=== PATIENT | male | born 1985 | race Caucasian/White ===

== ENCOUNTER 2019-10-08 15:24 | Observation (INO) | payer OTHER ==
[~2019-10-08] VITALS: Ht 182.9 cm; Wt 93.9 kg
--- NOTE | ~2019-10-08 | CN ---
PATIENT NAME:SAFIA WALTERS MEDICAL RECORD: [id number] : 83 LOCATION:D. D.2129 ADMIT DATE: 10/08/19 ACCOUNT: [id number] CONSULTING PHYSICIAN: SUSY MINOR MD REFERRING PHYSICIAN: PRECIOUS SANTOYO MD DATE OF CONSULTATION: 10/08/2019 ADMITTING DIAGNOSES: 1. Acute myocardial infarction. 2. Flu. 3. Shortness of breath. 4. Chest pain. HISTORY OF PRESENT ILLNESS: Mr. Walters presented to his primary care physician earlier in the week with chest pain and flu-like symptoms, was positive for the flu. His EKG at that time was with no significant ST abnormalities. His flu-like symptoms have not worsened; however, his chest pain has worsened over the past few days, he presents to [facility]. Initial EKG was compatible with acute inferior myocardial infarction. Repeat EKG is compatible with an acute inferolateral myocardial infarction. He continues to have chest pain. His troponin is elevated. PHYSICAL EXAMINATION: CONSTITUTIONAL/GENERAL APPEARANCE: Well nourished, well developed, appears stated age. EYES: Lids and conjunctivae noninjected. No discharge. No pallor. ENT: Lips within normal limit. No cyanosis. No pallor. NECK: Carotid arteries, bilateral normal upstroke. No bruits. No thrills. No jugular venous pressure or distention. CERVICAL LYMPH NODES: Nontender. Nonenlarged. THYROID: Not enlarged. No nodules. CARDIOVASCULAR: Precordial exam, nondisplaced. No heaves or pericardial thrills. Rate and rhythm, regular. Heart sounds, normal S1, normal S2. No S3, no gallop, no rub. Systolic murmur, not heard. Diastolic murmur, not heard. RESPIRATORY: Respiratory effort, unlabored. Normal curvature. No thoracic deformity. No chest wall tenderness. Percussion, resonant. Auscultation, clear. No wheezes, no rales, no rhonchi. ABDOMEN: Soft, nondistended, nontender. No abdominal pain, no vomiting and normal appetite. MUSCULOSKELETAL: No joint tenderness, normal gait, normal tone. SKIN: Warm and dry. OVERALL IMPRESSION: Chest pain compatible with an acute myocardial infarction. EKG compatible with an acute myocardial infarction. We will proceed with coronary angiography. Further care depends upon the findings of the angiography. TRANSINT:[id number] Voice Confirmation ID: [id number] DOCUMENT ID: [id number] CONSULT REPORT [id number] SAFIA WALTERS JEFFREY MD CC: [id number] DICTATION DATE: 10/08/19 155 GEOMORPHOLOGY TEACHER: 10/08/19 2345 ADM IN [facility] [address] [place] [address]
--- NOTE | ~2019-10-08 | OP ---
PATIENT NAME: SAFIA JEAN MEDICAL RECORD: [id number] :83 LOCATION:D.M2 D.2129 ADMISSION DATE:10/08/19 SURGEON: SUSY MINOR MD DATE OF OPERATION: 10/08/2019 PROCEDURES: 1. Left heart catheterization. 2. Selective coronary angiography. 3. Left ventriculogram. INDICATION: Abnormal ECG. Positive troponin, pericarditis. PROCEDURE IN DETAIL: After informed consent was obtained and after a detailed description of the risks, benefits as well as alternative therapies, the patient elected to proceed with angiogram and heart catheterization. The right femoral area was prepped and draped in normal sterile fashion. Right femoral artery was cannulated via modified Seldinger technique with placement of 6-Mongolian sheath. All catheters exchanged through this sheath. FINDINGS: Left ventriculogram was performed in standard 30-degree LYNN view, reveals good cardiac wall motion, ejection fraction estimated 60%. SELECTIVE CORONARY ANGIOGRAPHY: Left main, left anterior descending, left circumflex, right coronary are all smooth-walled vessels with no angiographic evidence of coronary artery disease. OVERALL IMPRESSION: 1. No angiographic evidence of coronary artery disease. 2. Normal left heart pressures. 3. Normal left ventricular systolic function. His symptomatology is most likely pericarditis from the fluid. We will treat the pericarditis medically. TRANSINT:[id number] Voice Confirmation ID: [id number] DOCUMENT ID: [id number] SUSY MINOR MD CC: [id number] DICTATION DATE: 10/08/19 1636 TRIPLE DRUM OPERATOR: 10/09/19 0359 ADM IN [place] [id number] [place] [address]
--- NOTE | ~2019-10-08 | HEMODYNAMI ---
PATIENT:SAFIA JEAN MEDICAL RECORD: [id number] : 83 [facility] [id number] ADMISSION DATE: 10/08/19 Generatedon:10/08/201916:39 Patient name: SAFIA JEAN Patient #: [id number] SSN: : 1 09/02/1984 Date of study: 10/08/2019 Page: Of Hemodynamic Procedure Report Patient Data Patient Demographics Procedure consent was obtained First Name: SAFIA Gender: Male Last Name: MIRANDA : 1985 Patient #: [id number] Age: 34 year(s) Race: Additional ID: [id number] Admission Admission Data Admission Date: 10/08/2019 Admission Time: 15:24 Arrival Date: 10/08/2019 Arrival Time: 15:24 Admit Source: Other Procedure Procedure Types Cath Procedure Diagnostic Procedure LHC LHC w/Coronaries Sedation Charges Moderate Sedation up to 15 minutes Procedure Description Procedure Date Procedure Date: 10/08/2019 Procedure Start Time: 16:27 Procedure End Time: 16:35 Procedure Staff Name Function Anuj Mack MD Performing Physician Janine Bonilla RT Monitor Sandie Vergara RT Scrub Don Rob RN Nurse Procedure Data Cath Procedure Fluoroscopy Diagnostic fluoroscopy Total fluoroscopy Time: 0.8 time: 0.8 min min Diagnostic fluoroscopy Total fluoroscopy dose: 257 dose: 257 mGy mGy Contrast Material Contrast Material Type Amount (ml) Isovue 300 46 Entry Location Entry Primary Successful Side Size Upsize Upsize Entry Closure Succes sful Closure Location (Fr) 1 (Fr) 2 (Fr) Remarks Device Remarks Femoral Right 6 Fr Exoseal artery Short Estimated blood loss: 5 ml Diagnostic catheters Device Type Used For End Catheter Placement MULTIPACK Pigtail 5 Fr LV Angiography catheter MULTIPACK JL 4.0 5Fr Left Coronary catheter Angiography MULTIPACK 3DRC 5Fr Right Coronary catheter Angiography Procedure Complications No complications Procedure Medications Medication Administration Route Dosage Oxygen NC 2 l/min Lidocaine 2% added to field 20 Heparin Flush Bag added to field 2 bags (1000units/500ml NS) 0.9% NaCl I.V. 100 ml/hr Lopressor I.V. 5 mg Versed I.V. 1 mg Fentanyl I.V. 50 mcg Versed I.V. 1 mg Fentanyl I.V. 50 mcg Solumedrol I.V. 125 mg Hemodynamics Rest Heart Rate: 127 (bpm) Pressure Samples Time Site Value (mmHg) Purpose Heart Use Rate(bpm) 16:28 AO 10/7(7) Snapshot 74 Snapshots Pre Cath Intra NCS Post Cath Vital Signs Time Heart Resp SPO2 etCO2 NIBP (mmHg) Rhythm Pain Sedation Rate (ipm) (%) (mmHg) Status Level (bpm) 16:18:53 128 25 99 0 121/81(104) ST 0 (11) 10(A) , No pain 16:23:13 128 26 99 0 89/69(87) ST 0 (11) 10(A) , No pain 16:27:19 121 17 98 0 107/75(100) ST 0 (11) 10(A) , No pain 16:31:33 100 16 98 0 103/70(91) ST 0 (11) 10(A) , No pain Medications Time Medication Route Dose Verified Delivered Reason Notes Effe ctiveness by by 16:23:17 Oxygen NC 2 Anuj Buffie used for l/min Frederick Rob RN procedure 16:23:37 Lidocaine 2% added 20ml Anuj Leslie for local to vial Frederick Mack MD anesthetic field 16:23:43 Lopressor I.V. 5 mg Anuj Vázquezie Per Frederick Rob RN physician 16:23:43 Heparin Flush added 2 Anuj Anuj used for Bag to bags Frederick Mack MD procedure (1000units/500ml field NS) 16:23:51 0.9% NaCl I.V. 100 Anuj Buffie Per ml/hr Frederick Rob RN physician 16:25:52 Versed I.V. 1 mg Anuj Vázquezie for Frederick Rob RN sedation 16:25:57 Fentanyl I.V. 50 Anujedgar Vázquezie for mcg Frederick Rob RN sedation 16:30:27 Versed I.V. 1 mg Anuj Vázquezie for Frederick Rob RN sedation 16:30:34 Fentanyl I.V. 50 Anujedgar Vázquezie for mcg Frederick Rob RN sedation 16:38:10 Solumedrol I.V. 125 Anuj Buffie Per mg Frederick Rob RN physician Procedure Log Time Note 15:48:18 Informed consent obtained and on chart 15:50:55 Don Rob RN sent for patient. Start room use. 16:01:17 Admit Source: Other 16:01:20 Arrival Date: 10/08/2019 3:24:00 PM 16:02:16 Diagnostic Cath Status : Emergency 16:03:05 Time tracking: Regular hours (M-F 7:00 - 5:00) 16:03:11 Plan of Care:Hemodynamics will remain stable., Cardiac rhythm will remain stable., Comfort level will be maintained., Respiratory function will remain adequate., Patient/ family verbilizes understanding of procedure., Procedure tolerated without complication., Recovers from procedure without complications.. 16:13:01 Patient received from ED to CCL 1 Alert and oriented. Tansferred to table in Supine position. 16:13:04 Warm blankets applied, and sarah hugger turned on for patient comfort. 16:13:04 Correct patient and procedure confirmed by team. 16:17:41 Vital chart was started 16:21:08 Baseline sample Acquired. 16:21:11 Rhythm: sinus tachycardia 16:21:13 Full Disclosure recording started 16:21:17 H&P Date Dictated: 10/08/2019 New H&P dictated by physician.. 16:21:19 Pre-procedure instructions explained to patient. 16:21:19 Pre-op teaching completed and patient verbalized understanding. 16:21:22 Family in waiting room. 16:21:24 Patient NPO since Midnight. 16:21:26 Is the patient allergic to Iodine/contrast media? No. 16:21:27 Was the patient premedicated? Yes 16:21:28 Is patient on blood thinner?No 16:21:36 Patient diabetic? No. 16:21:38 Previous problem with sedation/anesthesia? No ? 16:21:45 Snore? Yes 16:21:46 Sleep apnea? No 16:21:48 Deviated septum? No 16:21:49 Opens mouth fully? Yes 16:21:50 Sticks out tongue? Yes 16:21:53 Airway obstruction? No ? 16:21:57 Dentures? Yes in tight 16:22:00 Pre procedure: right dorsailis pedis pulse 2+ Normal; easily identifiable; not easily obliterated 16:22:03 Pre procedure: left dorsailis pedis pulse 2+ Normal; easily identifiable; not easily obliterated 16:22:05 Patient pain scale 0/10 ?. 16:22:12 IV patent on arrival in right wrist with 0.9% NaCl at [facility]. 16:22:15 Lab results completed and on chart. 16:22:20 Stress Test: no; N/A ? 16:22:26 Right groin area was prepped with chlora-prep and draped in sterile fashion 16:: Alarms reviewed by R. N. 16:: Sharps counted by scrub and verified by R.N. 16:22:29 Physician arrived 16::29 Final Timeout: patient, procedure, and site verified with staff and physician. All members of the team are in agreement. 16::30 --------ALL STOP TIME OUT------ 16:22:36 Right groin site verified by team. 16:22:40 Fire Safety Assessment: A--An alcohol-based skin anteseptic being used preoperatively., C--Open oxygen or nitrous oxide is being used., D--An ESU, laser, or fiber-optic light is being used. 16:22:43 Physical assessment completed. ASA score P 2 - A patient with mild systemic disease as per Anuj Mack MD. 16:23:17 Oxygen 2 l/min NC was administered by Don Rob RN; used for procedure; Verbal order read back and verified. 16:23:37 Lidocaine 2% 20ml vial added to field was administered by Anuj Mack MD; for local anesthetic; Verbal order read back and verified. 16:23:43 Lopressor 5 mg I.V. was administered by Don Rob RN; Per physician; Verbal order read back and verified. 16:23:43 Heparin Flush Bag (1000units/500ml NS) 2 bags added to field was administered by Anuj Mack MD; used for procedure; Verbal order read back and verified. 16:23:48 1) 90+ Normal kidney functon but urine findings or structural abnormalities or genetic trait point to kidney disease. 16:23:51 0.9% NaCl 100 ml/hr I.V. was administered by Don Rob RN; Per physician; Verbal order read back and verified. 16:23:51 Maximum allowable contrast dose (3.7 X eGFR X 0.75)249 ml. 16:23:55 Sedation plan: IV Moderate Sedation Medication:Versed, Fentanyl 16:23:59 Use device set Femoral Dx 16:24:00 ACIST Syringe (69302) opened to sterile field. 16:24:01 Bag Decanter (2002S) opened to sterile field. 16:24:01 Medline Cath Pack ([id number]) opened to sterile field. 16:24:02 ACIST Hand Control (00783) opened to sterile field. 16:24:03 ACIST Manifold (61487) opened to sterile field. 16:24:03 DIAGNOSTIC Multipack 5Fr catheter set (GX4624) opened to sterile field. 16:24:03 Tegaderm 4 x 4 (1626W) opened to sterile field. 16:24:04 SHEATH 5FR [place]wood (YSS129) opened to sterile field. 16:24:05 EMERALD Guide Wire (970-548) opened to sterile field. 16:24:54 Procedure started. 16:25:52 Versed 1 mg I.V. was administered by Don Rob RN; for sedation; Verbal order read back and verified. 16:25:57 Fentanyl 50 mcg I.V. was administered by Don Rob RN; for sedation; Verbal order read back and verified. 16:27:20 Local anesthetic to right femoral artery with Lidocaine 2% by Anuj Mack MD.INITIAL ACCESS ONLY 16:27:28 A 6 Fr Short sheath was inserted into the Right Femoral artery 16:28:27 A MULTIPACK Pigtail 5 Fr catheter was advanced over the wire and used for LV Angiography. 16:28:42 LV hemodynamics recorded. 16:28:45 LV gram done using LYNN 16:28:47 Injector settings: Ml/sec: 5, Volume: 15, 16:29:01 EF : 60 % 16:29:04 Catheter removed. 16:29:08 A MULTIPACK JL 4.0 5Fr catheter was advanced over the wire and used for Left Coronary Angiography. 16:29:42 LCA angiography performed. 16:29:44 Injector settings: Ml/sec: 3, Volume: 6, 16:30:11 Catheter removed. 16:30:18 A MULTIPACK 3DRC 5Fr catheter was advanced over the wire and used for Right Coronary Angiography. 16:30:27 Versed 1 mg I.V. was administered by Don Rob RN; for sedation; Verbal order read back and verified. 16:30:34 Fentanyl 50 mcg I.V. was administered by Don Rob RN; for sedation; Verbal order read back and verified. 16:31:01 RCA angiography performed. 16:31:04 Injector settings: Ml/sec: 3, Volume: 6, 16:32:03 Sheath removed intact; hemostasis achieved with Exoseal to the Right Femoral artery. 16:32:06 Procedure ended.(Physican Out) 16:32:35 EXOSEAL 6Fr (EX600) opened to sterile field. 16:32:53 Fluoroscopy time 00.80 minutes. 16:32:57 Fluoroscopy dose: 257 mGy 16:32:57 Flurop Dose total: 257 16:33:05 Dose Area Product 56502 mGy/cm. 16:33:09 Contrast amount:Isovue 300 46ml. 16:33:12 Maximum allowable dose exceeded? No. 16:33:12 Sharps counted by scrub and verified by R.N. 16:33:13 Insertion/operative site no bleeding no hematoma. 16:33:17 Post-op/insertion site Right Femoral artery dressed using a 4 x 4 and Tegaderm. 16:33:20 Post procedure rhythm: unchanged. 16:33:23 Estimated blood loss: 5 ml 16:33:25 Post procedure instruction explained to patient.Patient verbalizes understanding. 16:33:25 Patient needs reinforcement of post procedure teaching. 16:33:39 Procedure type changed to Cath procedure, Diagnostic procedure, LHC, [facility] w/Coronaries, Sedation Charges, Moderate Sedation up to 15 minutes 16:33:41 Procedure and supply charges have been captured, reviewed, submitted and are correct. 16:33:50 Procedure Complication : No complications 16:33:52 Vital chart was stopped 16:33:55 [facility] Findings: mild to moderate CAD (<70%) 16:33:59 Operative report dictated upon procedure completion. 16:34:00 See physician's report for complete and final results. 16:34:03 Report given to [facility] II. 16:34:05 Patient transfered to Med II with Stretcher. 16:35:05 Procedure ended. 16:35:05 Full Disclosure recording stopped 16:35:10 End room use (Document Last) 16:37:30 End room use (Document Last) 16:37:58 End room use (Document Last) 16:38:10 Solumedrol 125 mg I.V. was administered by Don Rob RN; Per physician; Verbal order read back and verified. Device Usage Item Name Manufacture Quantity Catalog Hospital Part Current Minimal L ot# / Number Charge Number Stock Stock Serial# Code ACIST Acist 1 74388 106740 025967 459349 20 Syringe Medical (43078) Systems Inc Bag Microtek 1 2001S 745524 36822 918590 5 Decanter Medical Inc. () Medline Medline 1 [id number] 883005 93763 089934 5 Cath Pack ([id number]) ACIST Hand Acist 1 11787 769064 077768 321140 5 Control Medical (19637) Systems Inc ACIST Acist 1 99297 333875 861159 738385 5 Manifold Medical (65457) Systems Inc DIAGNOSTIC Cardinal 1 [id number] 570197 11144 808416 30 Multipack Health 5Fr catheter set (AR9611) Tegaderm 4 3M 1 1626W 543978 996916 175511 5 x 4 (1626W) SHEATH 5FR Terumo 1 EJR982 481134 189511 647008 5 [place] (RZW348) EMERALD Cardinal 1 502-455 767603 732821 546774 5 Guide Wire [facility] (502-455) MULTIPACK Cardinal 1 251828 5 Pigtail 5 Health Fr catheter MULTIPACK Cardinal 1 399080 5 JL 4.0 5Fr Health catheter MULTIPACK Cardinal 1 240816 5 3DRC 5Fr Health catheter EXOSEAL 6Fr Cardinal 1 EX600 183483 645974 425702 10 (EX600) Health Signature Audit [place] Stage Time Signature Unsigned Intra-Procedure 10/08/2019 Janine Bonilla 4:37:30 PM RT(R) Intra-Procedure 10/08/2019 Don Rob RN 4:37:58 PM Intra-Procedure 10/08/2019 Anuj Mack 4:39:52 PM [facility] [address] [place] [address]
--- NOTE | ~2019-10-08 | EC ---
PATIENT:SAFIA JEAN DATE OF SERVICE: 10/08/19 SEX: M MEDICAL RECORD: [id number] DATE OF : [birth year] LOCATION:D.M2 D.212 AGE OF PATIENT: 34 ADMISSION DATE: 10/08/19 REFERRING PHYSICIAN: INTERPRETING PHYSICIAN: SUSY MACK MD ECHOCARDIOGRAM REPORT ECHO CHARGES 4 ECHO COMPLETE Date: 10/09/19 CLINICAL DIAGNOSIS: PERICARDITIS ECHOCARDIOGRAPHIC MEASUREMENTS (adult normal given) AC root (d.<3.7cm) 3.4 cm LV Septum d (<1.2 cm> 0.8 cm Valve Excursion 2.1 cm LV Septum (systole) 1.0 cm Left Atria (s.<4.0cm> 2.7 cm LVPW d(<1.2cm) 1.1 cm RV (d.<2.3cm) 2.7 cm LVPW (sytole) 1.2 cm LV diastole(<5.6CM) 6.1 cm MV E-F(>70mm/sec) cm LV systole 5.2 cm LVOT Diameter 2.2 cm MV exc.(>10mm) cm Est.ejection fraction (50-75%) % DOPPLER: LVIT cm/sec A 52 cm/sec E 55 cm/sec LA cm/sec RVSP 25.6 mmHg LVOT 80 cm/sec AOP1/2T m/s Asc. Ao 88 cm/sec RVOT 77 cm/sec RA cm/sec PA 89 cm/sec AV Gradient Peak 3.1 mmHg AV Mean 1.8 mmHg AV Area 3.0 cm MV Gradient Peak 2.8 mmHg MV Mean 1.7 mmHg MV Area cm COMMENTS: Cylinder Filler: [facility] Credit Assessment Analyst: 1 Dr. Mack TAPE# PACS Pericardial Effusion Y DATE OF SERVICE: FINDINGS: 1. Left ventricular chamber size is within normal limits. Left ventricular systolic function is preserved at 50%-55%. 2. Left atrium is within normal limits. Right atrium and right ventricle chamber sizes are mildly dilated. 3. Valvular structures have normal structure and motion. 4. Doppler interrogation reveals trace tricuspid regurgitation, no other valvular insufficiency or stenosis. ECHOCARDIOGRAM REPORT [id number] SAFIA JEAN 5. Small pericardial effusion is present. This is not hemodynamically significant. TRANSINT:[id number] Voice Confirmation ID: [id number] DOCUMENT ID: [id number] SUSY MACK MD CC: [id number] DICTATION DATE: 10/09/19 1242 ACCESS COORDINATOR: 10/09/192219 DIS IN 10/09/19 [facility] [address] [place] [id number]
--- NOTE | 2019-10-08 15:45 | NUR ---
PATIENT TRANSFERRED IN FROM [place], WITH POSSIBLE STEMI, DIAGNOSED WITH THE FLU LAST WEEK, CHEST PAIN STARTED LAST WEEK. PATIENT IS A+O X3, VERY PLEASANT, ANSWERS QUESTIONS APPROPRIATELY. MD TO BEDSIDE.
--- NOTE | 2019-10-08 15:45 | NUR ---
DR. MINRO TO BEDSIDE.
--- NOTE | 2019-10-08 16:00 | NUR ---
NURSES FROM [facility] TO BEDSIDE, CONSENT FORMS, EXPLAINED TO PATIENT, SIGNED BY PATIENT. PATIENT IS A+O X3, PAIN IS DOWN TO 5/10, FLU SWAB SENT.
--- NOTE | 2019-10-08 16:10 | NUR ---
CONSENT FORMS SIGNED TO PROCEED W THE SCUBA DIVER, PATIENT LEFT ER AT 1610, PT STABLE. TRANSPORTED VIA STRETCHER PER RN X2 FROM SCUBA DIVER.
[2019-10-08 16:19] LABS: BASOPHILS 0.2 % (0-2); EOSINOPHILS 0 % (0-7); HEMATOCRIT 47.9 % (42.0-54.0); HEMOGLOBIN 16.8 g/dL (13.5-17.5); IMMATURE GRANULOCYTES 0.2 % (0-5); LYMPHOCYTES 7.2 % (15-50); MCH 32.4 pg (26.0-34.0); MCHC 35.1 g/dL (31.0-37.0); MCV 92.3 fL (80.0-100.0); MEAN PLATELET VOLUME 11.1 fL (7.4-10.4); MONOCYTES 4.8 % (2-11); NEUTROPHILS 87.6 % (40-80); PLATELET COUNT 171 10x3/uL (130-400); RBC 5.19 10x6/uL (4.20-6.10); RDW 13.3 % (11.5-14.5); WBC 9.6 10x3/uL (4.8-10.8)
[2019-10-08 16:37] LABS: CALC OSMOLALITY 267 mosm/kg (275-300); CALCIUM 8.2 mg/dL (8.5-10.1); CARBON DIOXIDE 22.1 mmol/L (21.0-32.0); CHLORIDE - SERUM 98 mmol/L (98-107); CREATININE - SERUM 0.9 mg/dL (0.6-1.3); GLUCOSE 138 mg/dL (74-106); POTASSIUM - SERUM 4.4 mmol/L (3.5-5.1); SODIUM 132 mmol/L (136-145); UREA NITROGEN 16 mg/dL (7-18); eGFR NON AFRICAN AMERICAN > 90 mL/min (90-120)
[2019-10-08 17:04] LABS: ALKALINE PHOSPHATASE 147 U/L (30-120); ALT (SGPT) 54 U/L (10-68); BILIRUBIN - TOTAL 1.24 mg/dL (0.2-1.3); CKMB 10.6 U/L (0.0-3.6); CREATINE KINASE 500 UL (21-232); PRO BNP 2459 pg/mL (0-125); PROTEIN - SERUM 6.5 g/dL (6.4-8.2)
[2019-10-08 17:10] LABS: TROPONIN-I 1.937 ng/mL (0.000-0.060)
[2019-10-08 17:58] VITALS: BP 107/57; Ht 182.9 cm; Wt 93.9 kg
--- NOTE | 2019-10-08 19:30 | NUR ---
RECEIVED REPORT, WILL ASSUME CARE OF PT, R.GROIN DRESSING/C/D/I, ASKING FOR PAIN MEDS, PROVIDED PERCOCET ORDER, FAMILY AT BEDSIDE ASKING IF THEY CAN GO GET PT FOOD, BED IS LOW, SRX1, CALL LIGHT IN REACH, WILL CONTINUE PLAN OF CARE
[2019-10-08 20:00] VITALS: BP 109/50
[2019-10-09 00:01] VITALS: BP 114/63
[2019-10-09 05:23] LABS: BASOPHILS 0.2 % (0-2); EOSINOPHILS 0 % (0-7); HEMATOCRIT 44.6 % (42.0-54.0); HEMOGLOBIN 15.4 g/dL (13.5-17.5); IMMATURE GRANULOCYTES 0.2 % (0-5); LYMPHOCYTES 13.1 % (15-50); MCHC 34.5 g/dL (31.0-37.0); MCV 92.7 fL (80.0-100.0); MONOCYTES 8.9 % (2-11); NEUTROPHILS 77.6 % (40-80); PLATELET COUNT 174 10x3/uL (130-400); RBC 4.81 10x6/uL (4.20-6.10); RDW 13.4 % (11.5-14.5)
--- NOTE | 2019-10-09 07:15 | NUR ---
PT RECEIVED ALERT AND AWAKE IN BED. PAIN IN CHEST 6/10, WORSE WITH COUGHING. TELEMETRY IN PLACE.
[2019-10-09 07:36] LABS: ALBUMIN 2.9 g/dL (3.4-5.0); ALKALINE PHOSPHATASE 136 U/L (30-120); ALT (SGPT) 55 U/L (10-68); BILIRUBIN - TOTAL 0.97 mg/dL (0.2-1.3); CALC OSMOLALITY 278 mosm/kg (275-300); CALCIUM 8.5 mg/dL (8.5-10.1); CARBON DIOXIDE 26.4 mmol/L (21.0-32.0); CHLORIDE - SERUM 103 mmol/L (98-107); GLUCOSE 154 mg/dL (74-106); MAGNESIUM - SERUM 1.8 mg/dL (1.8-2.4); PROTEIN - SERUM 6.1 g/dL (6.4-8.2); SODIUM 137 mmol/L (136-145); UREA NITROGEN 19 mg/dL (7-18); eGFR NON AFRICAN AMERICAN 90 mL/min (90-120)
[2019-10-09 07:37] LABS: POTASSIUM - SERUM 5.4 mmol/L (3.5-5.1)
[2019-10-09 09:52] VITALS: BP 126/67
[2019-10-09] MEDS ORDERED: IBUPROFEN200 MG PO (11:24)
[2019-10-09] MEDS ORDERED: PROTONIX40 MG PO (11:25)
[2019-10-09] MEDS ORDERED: COLCRYS0.6 MG PO (11:26)
--- NOTE | 2019-10-09 13:50 | NUR ---
DISCHARGE INSTRUCTIONS GIVEN, IV REMOVED, TELEMETRY REMOVED. WORK NOTE GIVEN.
--- NOTE | 2019-10-10 08:27 | MORECARE ---
CASE MANAGEMENT DISCHARGE SUMMARY PATIENT: SAFIA JEAN UNIT: [id number] ADM DATE: 10/08/19 AGE: 34 : [birth year] SEX: M ROOM/BED: D.2129 AUTHOR: SHUN SHARMA PHYSICIAN: REFERRING PHYSICIAN: PRECIOUS SANTOYO MD DATE OF SERVICE: 10/10/19 Discharge Plan Patient Name[facility]AFIA JEAN [facility] [facility] 1985 Planned Disposition: Home Anticipated Discharge Date: 10/09/19 Discharge Date: 10/09/2019 Expected LOS: 1 Initial Reviewer: [email or web address] Initial Review Date: 10/10/2019 Generated: 10/10/19 9:27 am Patient Name: SAFIA JEAN Page [phone] at 0827 All edits/amendments must be made on the electronic document DICTATION DATE: 10/10/19826 MOTOR ADJUSTER: FRANSISCO 10/10/19826 RPT#: [id number] DC DATE:10/09/19 STATUS: DIS IN [facility] [address] [place] [address] END OF REPORT
== END 2019-10-09 14:07 | disposition home or self-care (01) ==
LOC: D.ER 15:24 → D.M2 17:00 → OBSVTIME 17:40 → D.M2 10-09 14:07
PROVIDERS: Emergency Medicine; ADMIT Internal Medicine Nephrology; ATTEND Internal Medicine Nephrology
DX: I20.0 Unstable angina (principal); E87.1 Hypo-osmolality and hyponatremia; R73.9 Hyperglycemia, unspecified; R00.0 Tachycardia, unspecified; G40.909 Epilepsy, unspecified, not intractable, without status epilepticus; F17.203 Nicotine dependence unspecified, with withdrawal; G89.29 Other chronic pain; J11.1 Influenza due to unidentified influenza virus with other respiratory manifestations; I21.9 Acute myocardial infarction, unspecified

== ENCOUNTER → 2019-12-27 09:19 | Outpatient (CLI) | payer OTHER ==
[2019-10-08 17:58] VITALS: BMI 28.0
[~2019-12-27 09:19] MED LIST: COLCRYS0.6 MG PO; IBUPROFEN200 MG PO; PROTONIX40 MG PO
== END | disposition home or self-care (01) ==
LOC: D.HCCECHO 09:19
PROVIDERS: ATTEND Internal Medicine Cardiovascular Disease
DX: I31.9 Disease of pericardium, unspecified (principal)